=== PATIENT | male | born 1980 | race Two or more races ===

== ENCOUNTER 2024-03-01 08:57 | Emergency (ER) | payer MEDICAID, SELFPAY ==
[2024-03-01 09:14] VITALS: BP 136/89; PULSE 120; RESP 20; TEMP 38.8; O2SAT 96; BMI 40.5
[2024-03-01 09:49] VITALS: TEMP 38.8
[2024-03-01] MEDS: IBUPROFEN TAB 400 MG TABLET 800 MG PO (09:49)
--- NOTE | 2024-03-01 10:18 | EDNOTE_ITS ---
Upper Respiratory Inf. RME/HPI General Chief Complaint: Flu Like Symptoms Stated Complaint: Cough X 4 days, fever, sore throat Time Seen by Provider: 03/01/24 09:04 Source: patient Arrival date/time: 03/01/24 08:57 This is a 43-year-old male who presents to the emergency department with complaints of bodyaches, cough and a sore throat for about 3 days. Does report high fevers at home has not been taking any medication for symptoms. Patient denies any other associated symptoms or aggravating factors. No modifying factors, no radiation, no migration. Social history is negative for tobacco, EtOH, or drug use. Positive sick contacts at home Mode of arrival: ambulatory Related Data Previous Rx's ?Medication ?Instructions ?Recorded ibuprofen 600 mg tablet 600 mg PO Q8H PRN fever or pain 04/19/23 #20 tabs ibuprofen 800 mg tablet (IBU) 800 mg PO Q8H #20 tabs 03/01/24 oseltamivir 75 mg capsule (Tamiflu) 75 mg PO BID 5 days #10 caps 03/01/24 Allergies Allergy/AdvReac Type Severity Reaction Status Date / Time No Known Allergies Allergy Verified 04/19/23 11:52 Review of Systems Review of Systems Systems Reviewed: All systems reviewed, normal except as documented Narrative Review of Systems: Gen: Positive fever, no chills, no weight loss, positive body aches EYES: No discharge, no visual changes, no pain HEENT: No ear pain, no congestion, positive sore throat PULM: No shortness of breath, positive cough, no congestion CV: No chest pain, no dyspnea on exertion, no palpitations GI: No nausea, no vomiting, no diarrhea, no pain, no constipation : No frequency, no urgency, no dysuria Musc/skel: No joint pain, no back pain Skin: No rash Psyc: No hallucinations, no depression Heme/Lymph: No easy bleeding or bruising tendencies Neuro: No weakness, no headache ED Exam Narrative Physical exam: General: Sittiing in Exam table in no acute distress, answering questions appropriately HENT: normocephalic, atraumatic, EOMI, PERRLA, moist mucous membranes Chest: chest wall is nontender Cardiac: regular rate and rhythm, normal S1 and S2, no murmurs, rubs, or gallops, capillary refill ?2 seconds Pulmonary: clear to auscultation bilaterally, no wheezing, crackles, or rhonchi Abdominal: active bowel sounds, soft, nontender, nondistended Neuro: A&OX3, CN II-XII intact, sensation grossly intact bilaterally in UE and LE. Skin: no rashes, no ecchymosis Ext: no lower extremity edema Course Quality Measures none Orders Category Date Time Status Bedside COVID-19 Antigen Test NOW Care 03/01/24 09:38 Completed Bedside Influenza A&B Antigen Test NOW Care 03/01/24 09:39 Completed Ibuprofen Tab [Motrin Tab] Med 03/01/24 09:38 Discontinued 800 mg PO X1 ONE Vital Signs Vital signs: Vital Signs Temperature 101.8 F H 03/01/24 09:14 Pulse Rate 120 H 03/01/24 09:14 Respiratory Rate 20 03/01/24 09:14 Blood Pressure 136/89 H 03/01/24 09:14 Pulse Oximetry (%) 96 03/01/24 09:14 Oxygen Delivery Method Room Air 03/01/24 09:14 Upper Respiratory Infection MDM Narrative MDM Narrative:: 43-year-old healthy male + fever, cough, sore throat, malaise consistent with viral illness such as Influenza. Positive rapid influenza test in ER. not chronically ill or immunosuppressed. History and exam I have lower suspicion for any emergent cardiopulmonary, Otolaryngeal and immunosupressing related infectious causes Given patient symptomatic, start Tamilflue 75 mg p.o. twice daily 5 days and conservative self-care and techniques to reduce spread for this suspected transient and self-resolving? illness. Advised will discharge with strict return precautions. Follow up with primary care provider within 24 hours. * Patient data External records reviewed:: [facility] previous records Clinical information provided by:: patient Social determinants that could affect healthcare access:: none Patient has the following chronic illnesses:: None How is presenting disease/condition affected by chronic disease/condition?: no chronic disease Evaluation data The following diagnostics were reviewed and interpreted by me:: lab results Lab and/or radiology exams considered but not ordered:: No Interpretation Summary: Positive influenza Medications / Prescriptions Medications or Prescriptions considered but not ordered:: No Medication administrations:: Medication Administration History Discontinued Medications Ibuprofen (Ibuprofen Tab 400 Mg Tablet) 800 mg PO X1 ONE Stop: 03/01/24 09:39 Last Admin: 03/01/24 09:49 Dose: 800 mg Documented By: DO All medications administered and effective Consultations Consultation(s) initiated? (list below): No Diagnosis Upper Respiratory Differential Diagnosis: upper respiratory infection, viral infection, bronchitis, influenza and pharyngitis Most likely diagnosis given after review of the tests above:: Influenza A Admission Indicated Admission indicated?: not indicated Admission Request Was there a request for admission?: No Disposition Plan Disposition Plan: Discharge Discharge Attestation Discharge Attestation: The patient and all family members were given an opportunity to ask questions and understood the discharge instructions. Discharge instructions specifically effects, indications for sooner follow up or return to the emergency department, and the expected course of current diagnosis. Patient condition: Stable Discharge Plan Plan Patient Disposition: HOME (Self Care) Patient condition on transfer: Stable Prescriptions/Referrals Prescriptions/Med Rec: New oseltamivir [Tamiflu] 75 mg capsule 75 mg PO BID 5 Days Qty: 10 0RF ibuprofen [IBU] 800 mg tablet 800 mg PO Q8H Qty: 20 0RF No Action ibuprofen 600 mg tablet 600 mg PO Q8H PRN (Reason: fever or pain) Qty: 20 0RF Referrals: No Primary/Family,Physician [Primary Care Provider] - In 1 week Problem List Clinical Impression: Influenza Patient/Caregiver Discharge Instructions Discharge Activity: activity as tolerated Education Materials: ED Influenza (Adult) Additional Instructions: ? Rest ? Drink plenty of fluids ? Take [id number] cold and flu medications to reduce fever and pain. Follow the instructions on the package, Note that these medicines do not ?cure? the illness and therefore do not stop you from spreading germs. Follow-up with your primary doctor on Monday for follow-up care And to the emergency department is any worsening symptoms change in condition. Print Language: Lao Stand Alone Forms: [employer] Award Info., Work/School Release, Patient Portal Info Letter TRISHA/PERRY Supervising Physician TRISHA/PERRY Supervising Physician: Dr Valladares
== END 2024-03-01 11:00 | disposition home or self-care (01) ==
PROVIDERS: Emergency Provider Emergency Medicine
DX: J11.1 Influenza due to unidentified influenza virus with other respiratory manifestations (principal)
CPT/HCPCS: 87400; 87811; 99283; A9270

== ENCOUNTER 2024-07-21 09:18 | Emergency (ER) | payer MEDICAID, SELFPAY ==
[2024-07-21 09:26] VITALS: BP 164/93; PULSE 75; RESP 18; TEMP 36.8; O2SAT 98
[2024-07-21] MEDS: KETOROLAC INJ 30 MG/ML VIAL IM (09:37)
--- NOTE | 2024-07-21 09:55 | EDNOTE_ITS ---
ED Dental RME/HPI General Chief complaint: Dental/Oral/Throat Stated complaint: TOOTHACHE L) MAXILLA SINCE YESTERDAY AM Time Seen by Provider: 07/21/24 09:22 Arrival date/time: 07/21/24 09:18 44-year-old male presents emergency department today with complaint of left upper dental pain patient reports symptoms ongoing since yesterday patient reports no chest pain or shortness of breath no facial swelling Limitations: no limitations Related Data Previous Rx's ?Medication ?Instructions ?Recorded ibuprofen 600 mg tablet 600 mg PO Q8H PRN fever or p ain 04/19/23 #20 tabs ibuprofen 800 mg tablet (IBU) 800 mg PO Q8H #20 tabs 0 03/01/24 clindamycin HCl 300 mg capsule 300 mg PO TID 7 days #2 1 caps 07/21/24 hydrocodone 5 mg-acetaminophen 325 1 tab PO BID PRN pa in #6 tabs 07/21/24 mg tablet ibuprofen 800 mg tablet 800 mg PO TID PRN pain #30 t abs 07/21/24 Allergies Allergy/AdvReac Type Severity Reaction Status Date / Time No Known Allergies Allergy Verified 07/21/24 09:23 Review of Systems Review of Systems Systems Reviewed: All systems reviewed, normal except as documented Constitutional Constitutional: Reports system reviewed and no additional complaints, except as documented, Denies fever(s) and Denies headache(s) Eyes Eyes: Reports system reviewed and no additional complaints, except as documented and Denies blurry vision ENT Ears, Nose, Mouth, and Throat: Reports system reviewed and no additional complaints, except as documented, Reports dental pain, Denies headache(s), Denies nasal congestion and Denies nasal discharge Cardiovascular Cardiovascular: Reports system reviewed and no additional complaints, except as documented, Denies chest pain and Denies dyspnea Respiratory Respiratory: Reports system reviewed and no additional complaints, except as documented, Denies chest congestion, Denies cough and Denies dyspnea Gastrointestinal Gastrointestinal: Reports system reviewed and no additional complaints, except as documented and Denies abdominal pain Integumentary/Breasts Skin/Breast: Reports system reviewed and no additional complaints, except as documented and Denies rash Neurologic Neurologic: Reports system reviewed and no additional complaints, except as documented, Reports as per HPI and Denies headache(s) Past Medical History Social History SMOKING STATUS: Current some day smoker ED Exam General Limitations: Present no limitations General appearance: Present alert and in no apparent distress Head Head exam: Present atraumatic, normocephalic and normal inspection Eye Eye exam: Present normal appearance, PERRL and EOMI ENT ENT exam: Present mucous membranes moist and other (Dental pain) Neck Neck exam: Present normal inspection, full ROM and trachea midline Chest Chest inspection: Present normal inspection and symmetric chest wall rise Respiratory Respiratory exam: Present normal lung sounds bilaterally Cardiovascular Cardiovascular exam: Present regular rate, normal rhythm and normal heart sounds Abdominal Exam Abdominal exam: Present soft and normal bowel sounds Extremities Exam Extremities exam: Present normal inspection and full ROM Back Exam Back exam: Present normal inspection and full ROM Neurological Exam Neurological exam: Present alert, oriented X3 and CN II-XII intact Psychiatric Psychiatric exam: Present normal affect and normal mood Skin Skin exam: Present warm, dry, intact and normal color Course Quality Measures none Orders Category Date Time Status Ketorolac Inj [Toradol Inj] Med 07/21/24 09:30 Discontinued 30 mg IM X1 ONE Vital Signs Vital signs: Vital Signs Temperature 98.3 F 07/21/24 09:26 Pulse Rate 75 07/21/24 09:26 Respiratory Rate 18 07/21/24 09:26 Blood Pressure 164/93 H 07/21/24 09:26 Pulse Oximetry (%) 98 07/21/24 09:26 Oxygen Delivery Method Room Air 07/21/24 09:26 O2 saturation 98% on room air with normal limits Dental / Oral MDM Narrative MDM Narrative:: 44-year-old male presents emergency department today with complaint of left upper dental pain patient reports symptoms ongoing since yesterday patient reports no chest pain or shortness of breath no facial swelling On exam patient with pain patient does not appear ill or toxic in no acute distress On exam patient has left upper dental pain worse with eating. Patient is no difficulty breathing no difficulty swallowing Patient discharged home in no distress to follow-up with primary care doctor in the next 24 to 48 hours and for any worsening symptoms to return to the ER immediately Patient data External records reviewed:: [facility] previous records Clinical information provided by:: patient Social determinants that could affect healthcare access:: none Patient has the following chronic illnesses:: None How is presenting disease/condition affected by chronic disease/condition?: no chronic disease Evaluation data The following diagnostics were reviewed and interpreted by me:: other (specify) (N/A) Lab and/or radiology exams considered but not ordered:: Consider not ordered Interpretation Summary: N/A Medications / Prescriptions Medications or Prescriptions considered but not ordered:: Given Medication administrations:: Medication Administration History Discontinued Medications Ketorolac Tromethamine (Ketorolac Inj 30 Mg/Ml Vial) 30 mg IM X1 ONE Stop: 07/21/24 09:31 Last Admin: 07/21/24 09:37 Dose: 30 mg Documented By: MF Given Consultations Consultation(s) initiated? (list below): No Diagnosis Dental Differential Diagnosis: gingival abscess, dental caries, toothache and dental abscess Most likely diagnosis given after review of the tests above:: Dental pain Admission Indicated Admission indicated?: not indicated Admission Request Was there a request for admission?: No Disposition Plan Disposition Plan: Discharge Discharge Attestation Discharge Attestation: The patient and all family members were given an opportunity to ask questions and understood the discharge instructions. Discharge instructions specifically effects, indications for sooner follow up or return to the emergency department, and the expected course of current diagnosis. Patient condition: Stable Discharge Plan Plan Patient Disposition: HOME (Self Care) Discharge Disposition comment: Stable Prescriptions/Referrals Prescriptions/Med Rec: New clindamycin HCl 300 mg capsule 300 mg PO TID 7 Days Qty: 21 0RF ibuprofen 800 mg tablet 800 mg PO TID PRN (Reason: pain) Qty: 30 0RF hydrocodone-acetaminophen 5-325 mg tablet 1 tab PO BID MDD 10 PRN (Reason: pain) Qty: 6 0RF No Action ibuprofen 600 mg tablet 600 mg PO Q8H PRN (Reason: fever or pain) Qty: 20 0RF ibuprofen [IBU] 800 mg tablet 800 mg PO Q8H Qty: 20 0RF Problem List Clinical Impression: Toothache Patient/Caregiver Discharge Instructions Education Materials: ED Dental Pain Additional Instructions: Please follow up with your primary care doctor in the next 24-48hrs for any worsening symptoms return here immediately Print Language: Telugu Stand Alone Forms: [employer] Award Info., Work/School Release, Patient Portal Info Letter PA/PERIODICALS LIBRARY ASSISTANT Supervising Physician PA/PERIODICALS LIBRARY ASSISTANT Supervising Physician: Dr. [email or web address]
== END 2024-07-21 09:48 | disposition home or self-care (01) ==
LOC: SERX 09:56
PROVIDERS: Emergency Provider Family Medicine
DX: K08.89 Other specified disorders of teeth and supporting structures (principal)
CPT/HCPCS: 96372; 99283; J1885

== ENCOUNTER 2024-11-19 22:53 | Emergency (ER) | payer SELFPAY ==
[2024-11-19 22:54] VITALS: BMI 32.8
[2024-11-19 23:12] VITALS: BP 113/78; PULSE 79; RESP 20; TEMP 36.8; O2SAT 97
--- NOTE | 2024-11-19 23:21 | XR_ITS ---
Examination: CT brain head without contrast. 2-D sagittal coronal reconstructions Date and time of exam: November 20, 2024, 0009 hours INDICATIONS: Cough and fever headaches beginning 3 days ago, severe headaches today CTDI: vol (mGy): 58.3 DLP: (mGycm): 1234 Technique: Multiple CT axial sections of the brain have been obtained, 5 mm slice thickness. Contrast has not been administered. 2-D sagittal, coronal reconstructions have been obtained Low dose protocols were performed. One or more of the following dose reduction techniques were used; automated exposure control, adjustment of the mA and/or KV according to patient size, use of iterative reconstruction technique. Findings: No significant ventricular enlargement. Intra-axial or extra-axial hemorrhage density is not seen. No mass effect or midline shift Basal cisterns are not remarkable. Fourth ventricle is midline. Cranial vault intact. Impression: Negative for acute hemorrhage, mass effect or midline shift Chronic pansinusitis Bilateral acute maxillary sinusitis
--- NOTE | 2024-11-19 23:36 | PD.EDURI ---
Upper Respiratory Inf. RME/HPI General Chief Complaint: Flu Like Symptoms Stated Complaint: COUGH FEVER AND HEADACHE Time Seen by Provider: 11/19/24 23:26 Arrival date/time: 11/19/24 22:53 RME / HPI RME / HPI Narrative: 44-year-old healthy male presents to the ER complaining of congestion, headache, neck spasms which have been gradual in onset for the past 3 days, fever self resolved as of today and he has not taken any Tylenol or ibuprofen today. Denies nausea, vomiting, vision changes, numbness, tingling, weakness, dysphagia, chest pain, shortness of breath. Patient denied cough with me however he did endorse a cough to the triage nurse. Related Data Previous Rx's ?Medication ?Instructions ?Recorded ibuprofen 600 mg tablet 600 mg PO Q8H PRN fever or pain 04/19/23 #20 tabs ibuprofen 800 mg tablet (IBU) 800 mg PO Q8H #20 tabs 03/01/24 hydrocodone 5 mg-acetaminophen 325 1 tab PO BID PRN pain #6 tabs 07/21/24 mg tablet ibuprofen 800 mg tablet 800 mg PO TID PRN pain #30 tabs 07/21/24 metformin 500 mg tablet 500 mg PO BID #30 tabs 11/20/24 Allergies Allergy/AdvReac Type Severity Reaction Status Date / Time No Known Allergies Allergy Verified 11/19/24 22:57 ED Exam Narrative Physical exam: Constitutional: Patient alert and oriented. Well appearing. No acute distress. Not toxic appearing. Head: Normocephalic, atraumatic. Eyes: Periorbital regions bilaterally normal to inspection. Conjunctiva clear bilaterally. Sclera anicteric bilaterally. Pupils equal, round, reactive to light bilaterally. Extraocular movements intact bilaterally. Ears: External ears normal to inspection bilaterally. Mouth/Throat: Mucous membranes moist. No stridor or muffled voice. Uvula midline. Rise and fall of soft palate normal. No tonsillar edema or exudate. No peritonsillar fullness. No trismus. Handling secretions without difficulty. Airway widely patent. Neck: Supple. Trachea midline. No JVD. No nuchal rigidity. No midline tenderness or step-offs. Normal range of motion. Respiratory: Normal effort. No accessory muscle use or respiratory distress. Lungs clear to auscultation bilaterally without rhonchi, wheezes, or crackles. Cardiovascular: RRR. Normal S1/S2. No murmurs or rubs. Radial pulses intact bilaterally. Abdomen: Soft. Non-distended. Non-tender throughout. No pulsatile mass. No guarding or rebound. Negative Jackson?s sign. Negative McBurney?s point tenderness. Negative Rovsing?s. Back: No midline tenderness or step-offs. No CVA tenderness to palpation bilaterally. Upper Extremities: No gross deformities. Lower Extremities: No gross deformities. No edema or calf tenderness. Neuro: Speech normal. No gross motor or sensory deficits to upper or lower extremities bilaterally. GCS 15. CN II?XII grossly intact. Skin: Warm, dry, normal color. Psych: Normal affect. Cooperative. Normal insight. Course Quality Measures none Orders Category Date Time Status Bedside COVID-19 Antigen Test NOW Care 11/19/24 23:23 Active Bedside Influenza A&B Antigen Test NOW Care 11/19/24 23:[address] head/brain wo con Stat Exams 11/19/24 23:21 Taken XR chest 1V Stat Exams 11/19/24 23:38 Completed CBC Stat Lab 11/19/24 23:36 Completed CMP [Comprehensive Metabolic Panel] Stat Lab 11/19/24 23:36 Completed Influenza A & B Rapid Panel Stat Lab 11/20/24 00:24 Completed Procalcitonin Stat Lab 11/19/24 23:36 Completed Strep A Rapid Stat Lab 11/19/24 23:40 Completed Ketorolac Inj [Toradol Inj] Med 11/19/24 23:21 Discontinued 30 mg IM X1 ONE Sodium Chloride 0.9% 1000 ml [Ns] 1,000 ml Med 11/20/24 01:22 Discontinued IV 999 mls/hr Reevaluation(s) Reevaluation #1: After further discussion with patient regarding his creatinine of 2.2 patient shared with me that 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 Additionally patient has no known history of diabetes or hypertension. Patient advised necessity for strict glycemic control to avoid further renal insufficiency I doubt patient's elevated creatinine is secondary to an acute process rather this is likely chronic in nature patient will require close follow-up with his PCP for further testing At time my reevaluation patient's neck is completely supple and he is moving around without difficulty and his headache is resolved, he feels much improved Time: 01:45 Reevaluation #2: At the time of reassessment, the patient remains alert and oriented ?3 with GCS 15. Vitals are normal, pain is controlled, and the patient is tolerating oral intake without nausea or vomiting. The patient is agreeable to discharge and verbalizes understanding of the diagnosis, studies, treatment plan, medications (including side effects/precautions), and strict ER return precautions as discussed in the ED. All concerns were addressed, and the patient is comfortable with the plan. Time: 02:01 Vital Signs Vital signs: Vital Signs Temperature 98.2 F 11/19/24 23:12 Pulse Rate 79 11/19/24 23:12 Respiratory Rate 20 11/19/24 23:12 Blood Pressure 113/78 11/19/24 23:12 Pulse Oximetry (%) 97 11/19/24 23:12 Oxygen Delivery Method Room Air 11/19/24 23:12 Upper Respiratory Infection MDM Narrative MDM Narrative:: MDM This patient's evaluation indicates the cause of the headache is very likely benign. The most serious possible causes of headache, including hemorrhage and infection, have been excluded based upon today's assessment. CT imaging was performed without acute findings at this time. The patient has nonetheless been warned to return immediately for worsening symptoms, change in pattern of current symptoms, or other acute problems. COVID was positive advised supportive treatment for this Creatinine 2.2 concerning for chronic kidney disease given normal electrolytes doubt TOSHIA, patient to have close outpatient follow-up with his PCP and better diabetes control, will start patient on metformin 500 mg twice daily, patient advised to continue with good oral hydration Patient data External records reviewed:: [facility] previous records Clinical information provided by:: patient Social determinants that could affect healthcare access:: none Patient has the following chronic illnesses:: As noted How is presenting disease/condition affected by chronic disease/condition?: exacerbated by Evaluation data The following diagnostics were reviewed and interpreted by me:: other (specify) Lab and/or radiology exams considered but not ordered:: Labs and radiology considered, but not ordered as they were not clinically indicated at this time. Interpretation Summary: Workup notable for normal white blood cell count, hemoglobin mildly elevated at 16.8, hematocrit within normal limits at 49.6 suggesting mild dehydration with hemoconcentration Monocyte number minimally elevated 1.2 as well as immature granulocyte 0.02 Sodium 135 likely pseudohyponatremia in the setting of hyperglycemia, CO2 within normal limits at 22.3, anion gap within normal notes at 8, BUN within normal limits at 17 creatinine mildly elevated at 2.2, glucose significantly elevated at 337 doubt DKA Procalcitonin 0.3 No prior renal function to compare patient's creatinine to at this time therefore concern for chronic kidney disease versus acute kidney injury Chest x-ray without acute cardiopulmonary abnormality Influenza A B, strep all negative however bedside COVID test is positive CT brain with sinusitis without any acute intracranial abnormality per preliminary read Medications / Prescriptions Medications or Prescriptions considered but not ordered:: I considered prescription management (both outpatient prescriptions AND drug treatment in the ER) and decided that this was necessary and was prescribed as charted. Medication administrations:: Medication Administration History Discontinued Medications Sodium Chloride (Ns) 1,000 mls @ 999 mls/hr IV .Q1H1M ONE Stop: 11/20/24 02:22 Last Admin: 11/20/24 02:06 Dose: Not Given Documented By: MARK Non-Admin Reason: Discontinued Ketorolac Tromethamine (Ketorolac Inj 30 Mg/Ml Vial) 30 mg IM X1 ONE Stop: 11/19/24 23:22 Last Admin: 11/19/24 23:47 Dose: 30 mg Documented By: JOSELIN As noted Consultations Consultation(s) initiated? (list below): Yes Consultation #1 (Physician, Specialty, Details): Case and plan discussed with and agreed upon with Dr. Martínez Diagnosis Upper Respiratory Differential Diagnosis: upper respiratory infection, sinusitis and viral infection Most likely diagnosis given after review of the tests above:: Tension headache complicated by upper respiratory infection in the setting of uncontrolled diabetes with chronic kidney disease Admission Indicated Admission indicated?: not indicated Admission Request Was there a request for admission?: No Disposition Plan Disposition Plan: Discharge Discharge Attestation Discharge Attestation: The patient and all family members were given an opportunity to ask questions and understood the discharge instructions. Discharge instructions specifically effects, indications for sooner follow up or return to the emergency department, and the expected course of current diagnosis. Patient condition: Stable Discharge Plan Plan Patient Disposition: HOME (Self Care) Prescriptions/Referrals Prescriptions/Med Rec: New metformin 500 mg tablet 500 mg PO BID Qty: 30 0RF No Action ibuprofen 600 mg tablet 600 mg PO Q8H PRN (Reason: fever or pain) Qty: 20 0RF ibuprofen [IBU] 800 mg tablet 800 mg PO Q8H Qty: 20 0RF ibuprofen 800 mg tablet 800 mg PO TID PRN (Reason: pain) Qty: 30 0RF hydrocodone-acetaminophen 5-325 mg tablet 1 tab PO BID MDD 10 PRN (Reason: pain) Qty: 6 0RF Referrals: No Primary/Family,Physician [Primary Care Provider] - In 1 week Problem List Clinical Impression: Upper respiratory infection Patient/Caregiver Discharge Instructions Education Materials: Diabetes and Kidney Disease, ED Headache, Tension, ED URI, Viral, No Abx (Adult) Additional Instructions: Follow up with your primary medical doctor within 24 hours. Return to the Emergency Room immediately for any new, worsening, continuing symptoms or any concerns at all. Return to the Emergency Room within 24 hours if you are unable to follow up with your primary medical doctor within 24 hours. Print Language: Telugu Stand Alone Forms: Priscila Award Info., Patient Portal Info Letter PA/CARDIAC TECHNICIAN Supervising Physician PA/PERRY Supervising Physician: Dr. Martínez
--- NOTE | 2024-11-19 23:38 | XR_ITS ---
EXAMINATION: PA chest single view TECHNIQUE: 1. Upright view chest single view Date and time: November 19, 2024, 1139 hours INDICATIONS: Shortness of breath today. FINDINGS: Normal heart size. Lungs are clear. The osseous structures are intact IMPRESSION: No active disease
[2024-11-19] MEDS: KETOROLAC INJ 30 MG/ML VIAL IM (23:47)
[2024-11-19 23:52] LABS: Basophils # (Auto) 0.1 Thou/mm3 (0.0-0.2); Basophils % (Auto) 1 % (0-2.5); Eosinophils # (Auto) 0.1 Thou/mm3 (0.0-0.5); Eosinophils % (Auto) 1 % (0-10); Hematocrit 49.6 % (41.0-53.0); Hemoglobin 16.8 g/dL (13.5-16.0); Immature Granulocytes Auto 0.02 Thou/mm3 (0.00-0.00); Lymphocytes # (Auto) 3.5 Thou/mm3 (1.0-4.8); Lymphocytes % (Auto) 36 % (10-50); Mean Corpuscular HGB Conc 33.9 g/dl (31.0-37.0); Mean Corpuscular Hemoglobin 29.7 pg (25.0-35.0); Mean Corpuscular Volume 88 fL (80-100); Monocytes # (Auto) 1.2 Thou/mm3 (0.0-0.8); Monocytes % (Auto) 13 % (0-12); Neutrophils # (Auto) 4.6 Thou/mm3 (1.8-7.7); Neutrophils % (Auto) 49 % (37-80); Nucleated Red Blood Cell # 0.00 Thou/mm3 (0.00-0.00); Nucleated Red Blood Cell % 0 /100 WBC (0); Platelet Count 214 Thou/mm3 (140-440); RDW Standard Deviation 41.4 fL (35.1-43.9); Red Blood Count 5.66 Miln/mm3 (4.50-5.90); White Blood Count 9.5 Thou/mm3 (3.8-10.6)
[2024-11-19 23:59] LABS: Strep A Rapid Negative (Negative)
[2024-11-20 00:27] LABS: Alanine Aminotransferase 15 U/L (10-49); Albumin, Serum 3.9 gm/dL (3.5-5.0); Albumin/Globulin Ratio 1.4 (1.2-2.2); Alkaline Phosphatase 114 U/L (46-116); Anion Gap 8 (7-16); Aspartate Amino Transferase 18 U/L (0-34); BUN/Creatinine Ratio 8 Ratio (12-20); Bilirubin,Total 0.4 mg/dL (0.3-1.2); Blood Urea Nitrogen 17 mg/dL (9-23); Calcium 8.7 mg/dL (8.3-10.6); Calcium (Corrected) 8.8 mg/dL (8.5-10.1); Carbon Dioxide 22.3 mMol/L (20.0-31.0); Chloride 105 mMol/L (98-107); Creatinine (Component) 2.2 mg/dL (0.6-1.3); Estimated Creatinine Clearance 47.1 mL/min (>60); Globulin 2.8 gm/dL (2.3-3.5); Glucose 337 mg/dL (74-106); Osmolality,Calculated 284 (275-295); Potassium 4.7 mMol/L (3.4-5.1); Procalcitonin 0.30 ng/ml (0.0-0.49); Sodium 135 mMol/L (136-145); Total Protein 6.7 gm/dL (5.7-8.2); eGFR 37 See Note
[2024-11-20 00:49] LABS: Influenza A Ag Negative; Influenza B Ag Negative
--- NOTE | 2024-11-20 01:05 | PRELIM_ITS ---
CT scan of the head without intravenous contrast (axial sections with sagittal and coronal reformats). November 20, 2024 at 0008 hours Clinical History: Headache. Comparison: None available at the time of this report. Findings: No evidence of intracranial hemorrhage, mass effect or midline shift. The ventricles and CSF spaces are unremarkable. The calvarium is unremarkable. The mastoid air cells are clear. Mild mucosal thickening and air-fluid levels in the bilateral maxillary sinuses. Impression: No evidence of intracranial hemorrhage, mass effect or midline shift. Mild bilateral maxillary sinusitis. Report Electronically Signed By: Vahid Menard 11/20/2024 1:05:18 AM [EST]
== END 2024-11-20 02:24 | disposition home or self-care (01) ==
PROVIDERS: Physician Assistant; Emergency Provider Emergency Medicine
DX: J06.9 Acute upper respiratory infection, unspecified (principal)
CPT/HCPCS: 36415; 70450; 71045; 80053; 84145; 85025; 87502; 87651; 87811; 96372; 99283; J1885